=== PATIENT | female | born 1980 | race Caucasian/White ===

== ENCOUNTER → 2017-08-25 | Outpatient (CLI) | payer OTHER ==
[2017-08-25 16:11] LABS: ADD MAN DIFF? NO
[2017-08-25 16:17] LABS: BILIRUBIN,URINE NEGATIVE (NEG); CLARITY,URINE CLEAR; COLOR,URINE YELLOW; GLUCOSE,URINE NEGATIVE (NEG); NITRITE,URINE NEGATIVE (NEG); PROTEIN,URINE NEGATIVE (NEG-TRACE)
[2017-08-25 16:18] LABS: BASO # 0.1 x10^3/uL (0.0-0.2); BASO % 1 % (0-3); EOS # 0.3 x10^3/uL (0.0-0.7); EOS % 4 % (0-3); HEMATOCRIT 38.7 % (36.0-47.0); HEMOGLOBIN 12.9 g/dL (12.0-15.5); LYMPH # 3.4 x10^3/uL (1.0-4.8); LYMPH % 39 % (24-48); MEAN CORPUSCULAR HEMOGLOBIN 29 pg (25-35); MEAN CORPUSCULAR HGB CONC 33 g/dL (31-37); MEAN CORPUSCULAR VOLUME 88 fL (79-100); MONO # 0.6 x10^3/uL (0.0-1.1); MONO % 7 % (0-9); NEUT # 4.3 x10^3uL (1.8-7.7); NEUT % 49 % (31-73); PLATELET COUNT 268 x10^3/uL (140-400); RED BLOOD COUNT 4.38 x10^6/uL (3.50-5.40); RED CELL DISTRIBUTION WIDTH 15.1 % (11.5-14.5); WHITE BLOOD COUNT 8.7 x10^3/uL (4.0-11.0)
[2017-08-25 16:27] LABS: RBC,URINE 0 /HPF (0-2); WBC,URINE OCC /HPF (0-4)
[2017-08-25 16:28] LABS: BACTERIA,URINE 0 /HPF (0-FEW); SQUAMOUS EPITHELIAL CELL,UR MOD /LPF
[2017-08-25 16:39] LABS: ALBUMIN 3.6 g/dL (3.4-5.0); BLOOD UREA NITROGEN 11 mg/dL (7-20); CALCIUM 9.1 mg/dL (8.5-10.1); CREATININE 0.9 mg/dL (0.6-1.0); GLUCOSE 84 mg/dL (70-99); TOTAL PROTEIN 7.3 g/dL (6.4-8.2)
[2017-08-25 16:40] LABS: ALK PHOS 79 U/L (46-116); ALT (SGPT) 24 U/L (14-59); ANION GAP 10 (6-14); AST (SGOT) 16 U/L (15-37); BUN/CREATININE RATIO 12 (6-20); CARBON DIOXIDE 24 mmol/L (21-32); CHLORIDE 106 mmol/L (98-107); GFR 70.5; SODIUM 140 mmol/L (136-145); TOTAL BILIRUBIN 0.2 mg/dL (0.2-1.0)
== END | disposition home or self-care (01) ==
LOC: SURGPAT 15:26
DX: Z01.818 Encounter for other preprocedural examination (principal)
CPT/HCPCS: 36415; 80053; 81001; 85025

== ENCOUNTER 2017-09-01 06:22 | Observation (INO) | payer OTHER ==
[2017-09-01] MEDS ORDERED: fentaNYL PF VIAL 100 MCG/2 ML VIAL ×4 (06:27→11:45)
[2017-09-01] MEDS ORDERED: PROPOFOL 20 ML IV ×2 (06:27→09:10)
[2017-09-01] MEDS ORDERED: DEXAMETHASONE SOD PHOS 20 MG/5 ML VIAL. (06:27)
[2017-09-01] MEDS ORDERED: ONDANSETRON PF 4 MG/2 ML VIAL. (06:27)
[2017-09-01] MEDS ORDERED: LIDOCAINE 2% PF Vial for OR 5 ML VIAL. (06:27)
[2017-09-01] MEDS ORDERED: ROCURONIUM 50 MG/5 ML VIAL. ×2 (06:27→08:26)
[2017-09-01] MEDS ORDERED: ONDANSETRON PF 4 MG/2 ML VIAL. IV ×2 (07:00→10:45)
[2017-09-01] MEDS ORDERED: LIDOCAINE 1% PF 2 ML VIAL. ID (07:00)
[2017-09-01] MEDS: IV RINGERS,LACTATED 1000ML 1,000 ML IV (07:00)
[2017-09-01] MEDS ORDERED: fentaNYL PF VIAL 100 MCG/2 ML VIAL IV (07:00)
[2017-09-01] MEDS ORDERED: MIDAZOLAM HCL/PF 2 MG/2 ML VIAL. (07:10)
[2017-09-01 08:08] LABS: NEG OBC UR NEG; POS OBC UR POS; U PREG PATIENT NEGATIVE (NEG)
[2017-09-01] MEDS ORDERED: FAMOTIDINE 20 MG/2 ML VIAL (08:14)
[2017-09-01] MEDS ORDERED: ePHEDrine PF IN SALINE 50 MG/5 ML DISP.SYRIN IV (08:31)
[2017-09-01] MEDS ORDERED: GLYCOPYRROLATE 1 MG/5 ML VIAL. (08:55)
[2017-09-01] MEDS ORDERED: NEOSTIGMINE METHYLSULFATE 5 MG/5 ML SYRINGE. (08:55)
[2017-09-01] MEDS ORDERED: KETOROLAC 30 MG/ML INJ FOR OR. INJ (08:55)
[2017-09-01] MEDS ORDERED: DESFLURANE 61 TO 120 MINUTES IH (08:56)
[2017-09-01] MEDS ORDERED: DESFLURANE > 120 MINUTES IH (10:00)
[2017-09-01] MEDS: BUPIVACAINE-EPI 0.25%-1:200000 50 ML VIAL. (10:03)
[2017-09-01] MEDS ORDERED: 0.9 % SODIUM CHLORIDE 10 ML DISP.SYRIN. IV (10:45)
[2017-09-01] MEDS ORDERED: NALOXONE 0.4 MG/ML VIAL. IV (10:45)
[2017-09-01] MEDS ORDERED: MORPHINE SULFATE 2 MG/ML DISP.SYRIN. IV (10:45)
[2017-09-01] MEDS ORDERED: SIMETHICONE 80 MG TAB.CHEW PO (10:45)
[2017-09-01] MEDS ORDERED: CALCIUM CARBONATE 500 MG TAB.CHEW PO (10:45)
[2017-09-01] MEDS ORDERED: ZOLPIDEM 5 MG TABLET. PO (10:45)
[2017-09-01] MEDS ORDERED: diphenhydrAMINE HCL 25 MG CAPSULE PO (10:45)
[2017-09-01] MEDS ORDERED: LACTULOSE 20 GM/30 ML SOLUTION. PO (10:45)
[2017-09-01] MEDS ORDERED: diphenhydrAMINE 50 MG/ML VIAL IV (10:45)
[2017-09-01] MEDS ORDERED: MAG HYDROX/ALUMINUM HYD/SIMETH 30 ML ORAL.SUSP PO (10:45)
[2017-09-01] MEDS ORDERED: MAGNESIUM HYDROXIDE 2,400 MG/30 ML ORAL.SUSP. PO (10:45)
[2017-09-01] MEDS ORDERED: PROCHLORPERAZINE 10 MG/2 ML VIAL. (11:01)
[2017-09-01] MEDS: MORPHINE SULFATE 2 MG/ML DISP.SYRIN. IV ×3 (11:31→14:41)
[2017-09-01] MEDS: fentaNYL PF VIAL 100 MCG/2 ML VIAL IV (11:49)
[2017-09-01] MEDS: PROCHLORPERAZINE 10 MG/2 ML VIAL. IV (11:53)
[2017-09-01] MEDS: oxyCODONE IR 5 MG TABLET PO (18:05)
[2017-09-01] MEDS: ZOLPIDEM 5 MG TABLET. PO (21:20)
[2017-09-01] MEDS: LORazepam 1 MG TABLET PO (21:20)
[2017-09-01] MEDS: SERTRALINE 50 MG TABLET. PO (21:20)
[2017-09-02] MEDS: oxyCODONE IR 5 MG TABLET PO ×2 (01:34→07:44)
[2017-09-02 06:50] LABS: ANION GAP 10 (6-14); BLOOD UREA NITROGEN 12 mg/dL (7-20); CALCIUM 9.3 mg/dL (8.5-10.1); CARBON DIOXIDE 24 mmol/L (21-32); CHLORIDE 106 mmol/L (98-107); CREATININE 1.1 mg/dL (0.6-1.0); GFR 55.9; GLUCOSE 207 mg/dL (70-99); POTASSIUM 4.2 mmol/L (3.5-5.1); SODIUM 140 mmol/L (136-145)
[2017-09-02 07:10] LABS: HEMATOCRIT 35.1 % (36.0-47.0)
[2017-09-02] MEDS: LORazepam 1 MG TABLET PO (07:43)
[2017-09-02] MEDS: FLUTICASONE 50MCG/NASAL SPRAY 16GM BOTTLE. NS (07:43)
[2017-09-02] MEDS: PANTOPRAZOLE 40 MG TABLET.DR. PO (07:43)
[2017-09-02] MEDS ORDERED: CETIRIZINE HCL 10 MG TABLET. PO (09:00)
[2017-09-02] MEDS: ESTRADIOL WEEKLY 0.1 MG PATCH. TD (10:45)
== END 2017-09-02 12:00 | disposition home or self-care (01) ==
LOC: SURG 06:22 → 3 NORTH 12:29
DX: D25.9 Leiomyoma of uterus, unspecified (principal); N83.202 Unspecified ovarian cyst, left side; R35.8 Other polyuria; N73.6 Female pelvic peritoneal adhesions (postinfective); N83.8 Other noninflammatory disorders of ovary, fallopian tube and broad ligament; N83.12 Corpus luteum cyst of left ovary
CPT/HCPCS: 36415; 80048; 81025; 85014; 86850; 86900; 86901; 88307; 96374; A7015; G0378; G0379; J0780; J1100; J1885; J2001; J2250; J2270; J2405; J2704; J2710; J3010; J3490; J7030; J7120; S0028

== ENCOUNTER 2021-05-23 20:47 | Inpatient (IN) | payer SELFPAY ==
[~2021-05-23] VITALS: Ht 162.6 cm; Wt 79.5 kg
[~2021-05-23 20:47] MED LIST: CALC600T60 PO; FLUT9.9S NS; LORA10TA3 PO; LORA1TAB PO; MULT-445 PO; OXYC10TA PO; PANT40GR PO; POLY17PO29 PO; PREG-9 PO; SERT100T PO; TOPI50TA8 PO; ZOLP10TA PO
[2021-05-23 22:24] LABS: BILIRUBIN,URINE NEGATIVE (NEG); CLARITY,URINE CLEAR; COLOR,URINE YELLOW; NITRITE,URINE POSITIVE (NEG); PROTEIN,URINE TRACE mg/dL (NEG-TRACE); UROBILINOGEN,URINE 0.2 mg/dL (0.2 mg/dL)
[2021-05-23 22:25] LABS: BACTERIA,URINE MODERATE /HPF (0-FEW); RBC,URINE OCC /HPF (0-2); WBC,URINE >40 /HPF (0-4)
[2021-05-23] MEDS ORDERED: ONDANSETRON PF 4 MG/2 ML VIAL. IVP ONE (22:30)
[2021-05-23] MEDS ORDERED: fentaNYL PF VIAL 100 MCG/2 ML VIAL IVP ONE (22:30)
[2021-05-23 22:33] LABS: BASO # 0.1 x10^3/uL (0.0-0.2); BASO % 1 % (0-3); EOS # 0.1 x10^3/uL (0.0-0.7); EOS % 1 % (0-3); HEMATOCRIT 35.1 % (36.0-47.0); HEMOGLOBIN 11.3 g/dL (12.0-15.5); LYMPH # 2.6 x10^3/uL (1.0-4.8); LYMPH % 23 % (24-48); MEAN CORPUSCULAR HEMOGLOBIN 29 pg (25-35); MEAN CORPUSCULAR HGB CONC 32 g/dL (31-37); MEAN CORPUSCULAR VOLUME 88 fL (79-100); MONO # 1.2 x10^3/uL (0.0-1.1); MONO % 10 % (0-9); NEUT # 7.5 x10^3/uL (1.8-7.7); NEUT % 65 % (31-73); PLATELET COUNT 286 x10^3/uL (140-400); RED BLOOD COUNT 3.97 x10^6/uL (3.50-5.40); RED CELL DISTRIBUTION WIDTH 14.1 % (11.5-14.5); WHITE BLOOD COUNT 11.5 x10^3/uL (4.0-11.0)
--- NOTE | 2021-05-23 22:40 | ED.ADGEN ---
Past Medical History Past Surgical History: Cholecystectomy, , Gastric Bypass, Hysterectomy, Tonsillectomy Smoking Status: Current Every Day Smoker Alcohol Use: None General Adult EDM: Chief Complaint: MULTIPLE COMPLAINTS HPI: HPI: Patient is a 40 year old female presenting with bilateral flank pain, worse on left, chills, nausea and vomiting (that is worse than baseline since she had her gastric bypass), dysuria and hematuria. Patient states she has a history of sepsis secondary to pyelonephritis about 7-1/2 years ago, was hospitalized at in the ICU at that time. Patient has been taking Tylenol for the past 2 days. Patient states she initially had some loose stools but denies any diarrhea currently. Has not taken her temperature at home. Review of Systems: Review of Systems: All other systems within normal limits except for as noted in the HPI Current Medications: Current Medications Medications (Trade) Dose Ordered Sig/Misael Start Time Stop Time Status Last Admin Dose Admin Ceftriaxone Sodium (Rocephin) 1 gm 1X ONCE 05/24/21 00:30 05/24/21 00:31 DC 05/24/21 00:55 1 GM Fentanyl Citrate (Fentanyl 2ml Vial) 75 mcg 1X ONCE 05/23/21 22:30 05/23/21 22:31 DC 05/23/21 22:27 75 MCG Info (CONTRAST GIVEN -- Rx MONITORING) 1 each PRN DAILY PRN 05/23/21 23:45 05/25/21 23:44 Iohexol (Omnipaque 300 Mg/ml) 75 ml 1X ONCE 05/24/21 00:00 05/24/21 00:01 DC 05/23/21 23:52 75 ML Ondansetron HCl (Zofran) 4 mg 1X ONCE 05/23/21 22:30 05/23/21 22:31 DC 05/23/21 22:26 4 MG Allergies: Allergies: Allergies Coded Allergies Type Severity Reaction Last Updated Verified hydrocodone Allergy Intermediate UNSPECIFIED; TOLERATES OXYCODONE 09/01/17 No propoxyphene Allergy Intermediate 09/01/17 No Physical Exam: PE: Constitutional: Well developed, well nourished, no acute distress, non-toxic appearance. [] HENT: Normocephalic, atraumatic, bilateral external ears normal, nose normal. [] Eyes: PERRLA, conjunctiva normal, no discharge. [] Neck: No rigidity, supple, no stridor. [] Cardiovascular: Regular rate and rhythm, brisk cap refill [] Lungs & Thorax: Non labored symmetric respirations, no tachypnea or respiratory distress [] Abdomen: Soft, nondistended, left abdominal tenderness without Skin: Warm, dry, no erythema, no rash. [] Back: Unremarkable, no point spine tenderness, bilateral CVA tenderness worse on left. Extremities: No deformities, range of motion grossly intact, no lower extremity edema [] Neurologic: Alert and oriented X 3, no focal deficits noted. [] Psychologic: Affect normal, judgement normal, mood normal. [] Current Patient Data: Labs: Laboratory Tests Test 05/23/21 21:30 05/23/21 21:34 05/23/21 22:15 Urine Collection Type Unknown Urine Color Yellow Urine Clarity Clear Urine pH 6.0 (<5.0-8.0) Urine Specific [place] <=1.005 (1.000-1.030) Urine Protein Trace mg/dL (NEG-TRACE) Urine Glucose (UA) Negative mg/dL (NEG) Urine Ketones (Stick) Negative mg/dL (NEG) Urine Blood Trace (NEG) Urine Nitrite Positive (NEG) Urine Bilirubin Negative (NEG) Urine Urobilinogen Dipstick 0.2 mg/dL (0.2 mg/dL) Urine Leukocyte Esterase Small (NEG) Urine RBC Occ /HPF (0-2) Urine WBC >40 /HPF (0-4) Urine Squamous Epithelial Cells Mod /LPF Urine Bacteria Moderate /HPF (0-FEW) Urine Mucus Slight /LPF POC Urine HCG, Qualitative Hcg negative (Negative) White Blood Count 11.5 x10^3/uL (4.0-11.0) H Red Blood Count 3.97 x10^6/uL (3.50-5.40) Hemoglobin 11.3 g/dL (12.0-15.5) L Hematocrit 35.1 % (36.0-47.0) L Mean Corpuscular Volume 88 fL (79-100) Mean Corpuscular Hemoglobin 29 pg (25-35) Mean Corpuscular Hemoglobin Concent 32 g/dL (31-37) Red Cell Distribution Width 14.1 % (11.5-14.5) Platelet Count 286 x10^3/uL (140-400) Neutrophils (%) (Auto) 65 % (31-73) Lymphocytes (%) (Auto) 23 % (24-48) L Monocytes (%) (Auto) 10 % (0-9) H Eosinophils (%) (Auto) 1 % (0-3) Basophils (%) (Auto) 1 % (0-3) Neutrophils # (Auto) 7.5 x10^3/uL (1.8-7.7) Lymphocytes # (Auto) 2.6 x10^3/uL (1.0-4.8) Monocytes # (Auto) 1.2 x10^3/uL (0.0-1.1) H Eosinophils # (Auto) 0.1 x10^3/uL (0.0-0.7) Basophils # (Auto) 0.1 x10^3/uL (0.0-0.2) Prothrombin Time 14.0 SEC (11.7-14.0) Prothrombin Time INR 1.1 (0.8-1.1) Sodium Level 140 mmol/L (136-145) Potassium Level 4.0 mmol/L (3.5-5.1) Chloride Level 103 mmol/L (98-107) Carbon Dioxide Level 29 mmol/L (21-32) Anion Gap 8 (6-14) Blood Urea Nitrogen 10 mg/dL (7-20) Creatinine 0.9 mg/dL (0.6-1.0) Estimated GFR (Cockcroft-Gault) 69.0 BUN/Creatinine Ratio 11 (6-20) Glucose Level 94 mg/dL (70-99) Lactic Acid Level 1.1 mmol/L (0.4-2.0) Calcium Level 9.0 mg/dL (8.5-10.1) Total Bilirubin 0.7 mg/dL (0.2-1.0) Aspartate Amino Transferase (AST) 9 U/L (15-37) L Alanine Aminotransferase (ALT) 19 U/L (14-59) Alkaline Phosphatase 96 U/L (46-116) Total Protein 7.9 g/dL (6.4-8.2) Albumin 3.4 g/dL (3.4-5.0) Albumin/Globulin Ratio 0.8 (1.0-1.7) L Lipase 103 U/L (73-393) Salicylates Level 2.5 mg/dL (2.8-20.0) L Salicylate Last Dose Date Salicylate Last Dose Time Acetaminophen Level 11.7 mcg/ml (10-30) Acetaminophen Last Dose Date Acetaminophen Last Dose Time Laboratory Tests 05/23/21 22:15 Laboratory Tests 05/23/21 22:15 Vital Signs: Vital Signs Date Time Temp Pulse Resp B/P (MAP) Pulse Ox O2 Delivery O2 Flow Rate FiO2 05/23/21 22:27 18 100 Room Air 05/23/21 21:28 98.4 81 113/73 (86) 98.4 EKG: EKG: [] Heart Score: C/O Chest Pain: No Risk Factors: Risk Factors: DM, Current or recent (<one month) smoker, HTN, HLP, family history of CAD, obesity. Risk Scores: Score 0 - 3: 2.5% MACE over next 6 weeks - Discharge Home Score 4 - 6: 20.3% MACE over next 6 weeks - Admit for Clinical Observation Score 7 - 10: 72.7% MACE over next 6 weeks - Early Invasive Strategies Radiology/Procedures: Radiology/Procedures: [facility] [address] [place] [address] IMAGING REPORT Signed PATIENT: MAKENNA MALLOY ACCOUNT: [id number] : 1980 LOCATION: ER AGE: 40 SEX: F EXAM STATUS: REG ER ORD. PHYSICIAN: CHAYA CHOI MD REASON: pyelonephritis, OMNI 300 75 ML IV PROCEDURE: CT ABD PELV W/ IV CONTRST ONLY EXAMINATION: CT abdomen and pelvis with IV contrast. INDICATION:40 years, Female, polynephritis. TECHNIQUE: Axial CT images of the abdomen and pelvis were obtained. Coronal and sagittal reformatted performed. COMPARISON: 03/01/2010. Exposure: One or more of the following individualized dose reduction techniques were utilized for this examination: 1. Automated exposure control 2. Adjustment of the mA and/or kV according to patient size 3. Use of iterative reconstruction technique. FINDINGS: LOWER CHEST: Unremarkable. ABDOMEN/PELVIS: Mild heterogeneous enhancement of the kidneys with mild bilateral perinephric fat stranding, greater in the left. Thickened left renal pelvis urothelia with enhancement. Punctate (1 mm) nonobstructing right nephrolithiasis. No hydronephrosis. Decompressed urinary bladder which limits evaluation. Liver, spleen, pancreas and adrenal glands are unremarkable. Cholecystectomy. Prominent central intrahepatic and extrahepatic biliary ducts with smooth tapering distally, likely secondary to postcholecystectomy status. Post Musa-en-Y gastric bypass changes. No bowel dilation. Appendix is normal. Normal caliber abdominal aorta. Mesenteric arteries and portal veins are patent. No lymphadenopathy. No pneumoperitoneum or ascites. Hysterectomy. MUSCULOSKELETAL STRUCTURES: Bilateral L5 pars defect with grade 1 anterolisthesis of L5 over S1 and severe degenerative changes. No acute osseous process. Small fat-containing infraumbilical hernia. Postsurgical changes along the anterior abdominal wall. IMPRESSION: 1. Findings suggesting of mild uncomplicated acute bilateral pyelonephritis, greater in the left kidney. 2. Punctate nonobstructing right nephrolithiasis. No hydronephrosis in either kidney. Electronically signed by: Zaida Ribera MD (05/24/2021 12:31 AM) [facility] DICTATED and SIGNED BY: ZAIDA RIBERA MD DATE: 05/24/21 [id number] [] Course & Med Decision Making: Course & Med Decision Making Pertinent Labs and Imaging studies reviewed. (See chart for details) [] Kvng Disclaimer: Kvng Disclaimer: This electronic medical record was generated, in whole or in part, using a voice recognition dictation system. Departure Departure Impression: Primary Impression: Pyelonephritis Additional Impression: Nephrolithiasis Disposition: ADMITTED INPATIENT Admitting Physician: HIMS Condition: STABLE Referrals: EBONY GUIDRY MD (PCP) Problem Qualifiers CHAYA CHOI MD May 23, 2021 22:40
[2021-05-23 22:42] LABS: CREATININE 0.9 mg/dL (0.6-1.0)
[2021-05-23 22:48] LABS: ALBUMIN 3.4 g/dL (3.4-5.0); ALBUMIN/GLOBULIN RATIO 0.8 (1.0-1.7); TOTAL BILIRUBIN 0.7 mg/dL (0.2-1.0); TOTAL PROTEIN 7.9 g/dL (6.4-8.2)
[2021-05-23 22:51] LABS: ACETAMIN 11.7 mcg/ml (10-30); SALIC 2.5 mg/dL (2.8-20.0)
[2021-05-23] MEDS ORDERED: CONTRAST GIVEN. MC PRN (23:45)
[2021-05-24] MEDS ORDERED: IOHEXOL 300 MG/ML 100ML VIAL. IV ONE
[2021-05-24] MEDS ORDERED: cefTRIAXone IV Push 1 GM VIAL. IVP ONE (00:30)
--- NOTE | 2021-05-24 00:34 | RAD ---
EXAMINATION: CT abdomen and pelvis with IV contrast. INDICATION:40 years, Female, polynephritis. TECHNIQUE: Axial CT images of the abdomen and pelvis were obtained. Coronal and sagittal reformatted performed. COMPARISON: 03/01/2010. Exposure: One or more of the following individualized dose reduction techniques were utilized for thi s examination: 1. Automated exposure control 2. Adjustment of the mA and/or kV according to patient size 3. Use of iterative reconstruction technique. FINDINGS: LOWER CHEST: Unremarkable. ABDOMEN/PELVIS: Mild heterogeneous enhancement of the kidneys with mild bilateral perinephric fat stranding, greater in the left. Thickened left renal pelvis urothelia with enhancement. Punctate (1 mm) nonobstructing r ight nephrolithiasis. No hydronephrosis. Decompressed urinary bladder which limits evaluation. Liver, spleen, pancreas and adrenal glands are unremarkable. Cholecystectomy. Prominent central intra hepatic and extrahepatic biliary ducts with smooth tapering distally, likely secondary to postcholecy stectomy status. Post Musa-en-Y gastric bypass changes. No bowel dilation. Appendix is normal. Normal caliber abdomina l aorta. Mesenteric arteries and portal veins are patent. No lymphadenopathy. No pneumoperitoneum or ascites. Hysterectomy. MUSCULOSKELETAL STRUCTURES: Bilateral L5 pars defect with grade 1 anterolisthesis of L5 over S1 and severe degenerative changes. No acute osseous process. Small fat-containing infraumbilical hernia. Postsurgical changes along the anterior abdominal wall. IMPRESSION: 1. Findings suggesting of mild uncomplicated acute bilateral pyelonephritis, greater in the left kid yasir. 2. Punctate nonobstructing right nephrolithiasis. No hydronephrosis in either kidney. Electronically signed by: Everett Ribera MD (05/24/2021 12:31 AM) [facility]
[2021-05-24] MEDS ORDERED: ACETAMINOPHEN 325 MG TABLET. PO PRN ×2 (01:00→10:00)
[2021-05-24] MEDS ORDERED: MORPHINE SULFATE 4 MG/ML INJ. IV ONE (01:00)
[2021-05-24] MEDS: ONDANSETRON PF 4 MG/2 ML VIAL. IVP PRN ×2 (01:21→10:07)
[2021-05-24] MEDS: IV NORMAL SALINE 1000ML BAG 1,000 ML IV SCH ×2 (01:22→14:20)
[2021-05-24 01:49] LABS: INFLUENZA A PATIENT NEGATIVE (NEGATIVE); INFLUENZA B PATIENT NEGATIVE (NEGATIVE)
[2021-05-24] MEDS: MORPHINE SULFATE 4 MG/ML INJ. IVP PRN ×6 (03:15→16:41)
--- NOTE | 2021-05-24 04:25 | NUR ---
Admitted to room 434. POC discussed with patient and verbalized understanding.
[2021-05-24 07:00] VITALS: BP 101/49
[2021-05-24] MEDS ORDERED: PIP/TAZO PER PHARMACY MC PRN (09:45)
[2021-05-24] MEDS ORDERED: ELECTROLYTE (NON-ICU) PROTOCOL. MC PRN (10:00)
[2021-05-24] MEDS ORDERED: ONDANSETRON PF 4 MG/2 ML VIAL. IVP PRN (10:00)
[2021-05-24] MEDS ORDERED: CALCIUM CARBONATE 500 MG TAB.CHEW PO PRN (10:00)
[2021-05-24] MEDS ORDERED: oxyCODONE/APAP 5/325 1 TAB TABLET PO PRN ×2 (10:00)
[2021-05-24] MEDS ORDERED: ZOLPIDEM 5 MG TABLET. PO PRN (10:00)
[2021-05-24] MEDS ORDERED: oxyCODONE IR 5 MG TABLET PO PRN (10:30)
[2021-05-24] MEDS: oxyCODONE IR 5 MG TABLET PO PRN ×3 (10:37→21:49)
[2021-05-24 10:51] VITALS: BP 92/53
--- NOTE | 2021-05-24 10:51 | PDOC2 ---
UROLOGY CONSULT DOS: DATE: 05/24/21 TIME: 10:39 Reason for Consult: bilateral pyelonephritis Chief Complaint flank pain 40 year old female presented overnight to the ER with bilateral flank pain, fevers, chills, nausea x1 day. Does endorse dysuria, frequency that lasted "a few days". Patient with significant urological history including pyelonephritis 7 years ago which caused her to be septic. She states that at that time she also had kidney stones. States the stones passed on their own, did not require surgery or any invasive procedures that admission. Does endorse have stones in the past not requiring intervention. States she is feeling much better compared to admission. CT A/P done in ER showing bilateral pyelo, does have 1mm nonobstructing right nephrolithiasis. No hydronephrosis. ROS ROS: RESPIRATORY: Shortness of breath denies. Cough denies. UROLOGY: endorses bilateral flank pain, dysuria, frequency Current Medications Current Medications Fentanyl Citrate (Fentanyl 2ml Vial) 75 mcg 1X ONCE IVP Last administered on 05/23/21at 22:27; Start 05/23/21 at 22:30; Stop 05/23/21 at 22:31; Status DC Ondansetron HCl (Zofran) 4 mg 1X ONCE IVP Last administered on 05/23/21at 22:26; Start 05/23/21 at 22:30; Stop 05/23/21 at 22:31; Status DC Iohexol (Omnipaque 300 Mg/ml) 75 ml 1X ONCE IV Last administered on 05/23/21at 23:52; Start 05/24/21 at 00:00; Stop 05/24/21 at 00:01; Status DC Info (CONTRAST GIVEN -- Rx MONITORING) 1 each PRN DAILY PRN MC SEE COMMENTS; Start 05/23/21 at 23:45; Stop 05/25/21 at 23:44 Ceftriaxone Sodium (Rocephin) 1 gm 1X ONCE IVP Last administered on 05/24/21at 00:55; Start 05/24/21 at 00:30; Stop 05/24/21 at 00:31; Status DC Morphine Sulfate (Morphine Sulfate) 4 mg 1X ONCE IV Last administered on 05/24/21at 00:53; Start 05/24/21 at 01:00; Stop 05/24/21 at 01:01; Status DC Ondansetron HCl (Zofran) 4 mg PRN Q8HRS PRN IVP NAUSEA/VOMITING 1ST CHOICE Last administered on 05/24/21at 10:07; Start 05/24/21 at 01:00; Stop 05/25/21 at 00:59 Morphine Sulfate (Morphine Sulfate) 4 mg PRN Q2HR PRN IVP SEVERE PAIN 7-10 Last administered on 05/24/21at 10:07; Start 05/24/21 at 01:00; Stop 05/25/21 at 00:59 Sodium Chloride 1,000 ml @ 75 mls/hr [id number] IV Last administered on 05/24/21at 01:22; Start 05/24/21 at 01:00; Stop 05/25/21 at 00:59 Acetaminophen (Tylenol) 650 mg PRN Q4HRS PRN PO FEVER > 100.3'F Last administered on 05/24/21at 07:22; Start 05/24/21 at 01:00; Stop 05/24/21 at 10:00; Status DC Piperacillin Sod/ Tazobactam Sod (Zosyn Per Pharmacy) 1 each PRN DAILY PRN MC SEE COMMENTS; Start 05/24/21 at 09:45 Polyethylene Glycol (miraLAX PACKET) 17 gm DAILY PO ; Start 05/24/21 at 11:00 Fluticasone Propionate (Flonase) 2 spray DAILY NS ; Start 05/25/21 at 09:00 Cetirizine HCl (ZyrTEC) 10 mg DAILY PO ; Start 05/24/21 at 11:00 Multivitamins (Thera M Plus) 1 tab DAILY PO ; Start 05/24/21 at 11:00 Non-Formulary Medication (Oxycodone Hcl (Oxycodone Hcl Immed.release)) 1 tab TID PO ; Start 05/24/21 at 14:00; Status UNV Pantoprazole Sodium (Protonix) 40 mg DAILYAC PO ; Start 05/24/21 at 11:30 Zolpidem Tartrate (Ambien) 5 mg QHS PO ; Start 05/24/21 at 21:00 Ondansetron HCl (Zofran) 4 mg PRN Q6HRS PRN IVP NAUSEA/VOMITING; Start 05/24/21 at 10:00 Calcium Carbonate/ Glycine (Tums) 500 mg PRN Q3HRS PRN PO UPSET STOMACH; Start 05/24/21 at 10:00 Zolpidem Tartrate (Ambien) 5 mg PRN QHS PRN PO INSOMNIA, MAY REPEAT IN 1HR; Start 05/24/21 at 10:00; Status UNV Info (Non-Icu Electrolyte Protocol) 1 ea PRN DAILY PRN MC SEE COMMENTS; Start 05/24/21 at 10:00 Oxycodone/ Acetaminophen (Percocet 5/325) 1 tab PRN Q4HRS PRN PO MILD PAIN, 1ST CHOICE; Start 05/24/21 at 10:00; Stop 05/24/21 at 10:25; Status DC Oxycodone/ Acetaminophen (Percocet 5/325) 2 tab PRN Q4HRS PRN PO MODERATE PAIN, SEVERE PAIN; Start 05/24/21 at 10:00; Stop 05/24/21 at 10:25; Status DC Acetaminophen (Tylenol) 650 mg PRN Q6HRS PRN PO Headaches, Temp > 101.5F; Start 05/24/21 at 10:00 Senna/Docusate Sodium (Senna Plus) 1 tab BID PO ; Start 05/24/21 at 21:00 Heparin Sodium (Porcine) (Heparin Sodium) 5,000 unit Q8HRS SQ ; Start 05/24/21 at 14:00 Piperacillin Sod/ Tazobactam Sod 3.375 gm/Sodium Chloride 50 ml @ 100 mls/hr Q6HRS IV ; Start 05/24/21 at 12:00 Oxycodone HCl (Roxicodone) 5 mg PRN Q4HRS PRN PO MODERATE PAIN; Start 05/24/21 at 10:30 Oxycodone HCl (Roxicodone) 10 mg PRN Q4HRS PRN PO SEVERE PAIN Last administered on 05/24/21at 10:37; Start 05/24/21 at 10:45 Active Scripts Active Reported Multivitamins (Multivitamin) 1 Each Tablet 1 Tab PO DAILY Miralax (Polyethylene Glycol 3350) 17 Gm Powd.pack 1 Packet PO DAILY Calcium (Calcium Carbonate) 600 Mg Tablet 600 Mg PO TID Flonase Allergy Relief (Fluticasone Propionate) 9.9 Ml [place].susp 2 Sprays NS DAILY Loratadine 10 Mg Tablet 1 Tab PO DAILY Ambien (Zolpidem Tartrate) 10 Mg Tablet 1 Tab PO QHS Oxycodone Hcl Immed.release (Oxycodone Hcl) 10 Mg Tablet 1 Tab PO TID Protonix Packet (Pantoprazole Sodium) 40 Mg Granpkt.dr 40 Mg PO DAILY Allergies: Coded Allergies: Opioids - Morphine Analogues (Verified Allergy, Intermediate, 05/24/21) COMPOUNDED Opioids-Meperidine and Related (Verified Allergy, Intermediate, 05/24/21) COMPOUNDED Opioids-Methadone and Related (Verified Allergy, Intermediate, 05/24/21) COMPOUNDED hydrocodone (Unverified Allergy, Intermediate, UNSPECIFIED; TOLERATES OXYCODONE, 09/01/17) propoxyphene (Unverified Allergy, Intermediate, 09/01/17) Physical Examination PHYSICAL EXAMINATION: GENERAL: Gen. appearance: No acute distress. Mood/affect: Pleasant. HEENT: Head: Normocephalic, atraumatic. Airway Impairment: No. CHEST: Shape and expansion: Normal. Expansion: Normal. SKIN: General: Warm. Color: Good. GENITOURINARY:Positive bilat CVA tenderness. Left >right. Urine in hat clear orange. NEUROLOGICAL: Mental status: Alert and oriented 3. Language: Normal. VITALS Vital Signs Date Time Temp Pulse Resp B/P (MAP) Pulse Ox O2 Delivery O2 Flow Rate FiO2 05/24/21 10:37 16 96 Room Air 05/24/21 07:00 100.3 101/49 (66) 100.3 05/24/21 02:35 58 Labs Laboratory Tests Test 05/23/21 21:30 05/23/21 21:34 05/23/21 22:15 05/24/21 01:25 Urine Collection Type Unknown Urine Color Yellow Urine Clarity Clear Urine pH 6.0 (<5.0-8.0) Urine Specific [place] <=1.005 (1.000-1.030) Urine Protein Trace mg/dL (NEG-TRACE) Urine Glucose (UA) Negative mg/dL (NEG) Urine Ketones (Stick) Negative mg/dL (NEG) Urine Blood Trace (NEG) Urine Nitrite Positive (NEG) Urine Bilirubin Negative (NEG) Urine Urobilinogen Dipstick 0.2 mg/dL (0.2 mg/dL) Urine Leukocyte Esterase Small (NEG) Urine RBC Occ /HPF (0-2) Urine WBC >40 /HPF (0-4) Urine Squamous Epithelial Cells Mod /LPF Urine Bacteria Moderate /HPF (0-FEW) Urine Mucus Slight /LPF Bedside Urine HCG, Qualitative Hcg negative (Negative) White Blood Count 11.5 x10^3/uL (4.0-11.0) Red Blood Count 3.97 x10^6/uL (3.50-5.40) Hemoglobin 11.3 g/dL (12.0-15.5) Hematocrit 35.1 % (36.0-47.0) Mean Corpuscular Volume 88 fL (79-100) Mean Corpuscular Hemoglobin 29 pg (25-35) Mean Corpuscular Hemoglobin Concent 32 g/dL (31-37) Red Cell Distribution Width 14.1 % (11.5-14.5) Platelet Count 286 x10^3/uL (140-400) Neutrophils (%) (Auto) 65 % (31-73) Lymphocytes (%) (Auto) 23 % (24-48) Monocytes (%) (Auto) 10 % (0-9) Eosinophils (%) (Auto) 1 % (0-3) Basophils (%) (Auto) 1 % (0-3) Neutrophils # (Auto) 7.5 x10^3/uL (1.8-7.7) Lymphocytes # (Auto) 2.6 x10^3/uL (1.0-4.8) Monocytes # (Auto) 1.2 x10^3/uL (0.0-1.1) Eosinophils # (Auto) 0.1 x10^3/uL (0.0-0.7) Basophils # (Auto) 0.1 x10^3/uL (0.0-0.2) Prothrombin Time 14.0 SEC (11.7-14.0) Prothromb Time International Ratio 1.1 (0.8-1.1) Sodium Level 140 mmol/L (136-145) Potassium Level 4.0 mmol/L (3.5-5.1) Chloride Level 103 mmol/L (98-107) Carbon Dioxide Level 29 mmol/L (21-32) Anion Gap 8 (6-14) Blood Urea Nitrogen 10 mg/dL (7-20) Creatinine 0.9 mg/dL (0.6-1.0) Estimated GFR (Cockcroft-Gault) 69.0 BUN/Creatinine Ratio 11 (6-20) Glucose Level 94 mg/dL (70-99) Lactic Acid Level 1.1 mmol/L (0.4-2.0) Calcium Level 9.0 mg/dL (8.5-10.1) Total Bilirubin 0.7 mg/dL (0.2-1.0) Aspartate Amino Transf (AST/SGOT) 9 U/L (15-37) Alanine Aminotransferase (ALT/SGPT) 19 U/L (14-59) Alkaline Phosphatase 96 U/L (46-116) Total Protein 7.9 g/dL (6.4-8.2) Albumin 3.4 g/dL (3.4-5.0) Albumin/Globulin Ratio 0.8 (1.0-1.7) Lipase 103 U/L (73-393) Salicylates Level 2.5 mg/dL (2.8-20.0) Salicylate Last Dose Date Salicylate Last Dose Time Acetaminophen Level 11.7 mcg/ml (10-30) Acetaminophen Last Dose Date Acetaminophen Last Dose Time Influenza Type A Antigen Negative (NEGATIVE) Influenza Type B Antigen Negative (NEGATIVE) SARS-CoV-2 Antigen (Rapid) Negative (NEGATIVE) Laboratory Tests Test 05/23/21 21:30 05/23/21 21:34 05/23/21 22:15 05/24/21 01:25 Urine Collection Type Unknown Urine Color Yellow Urine Clarity Clear Urine pH 6.0 (<5.0-8.0) Urine Specific [place] <=1.005 (1.000-1.030) Urine Protein Trace mg/dL (NEG-TRACE) Urine Glucose (UA) Negative mg/dL (NEG) Urine Ketones (Stick) Negative mg/dL (NEG) Urine Blood Trace (NEG) Urine Nitrite Positive (NEG) Urine Bilirubin Negative (NEG) Urine Urobilinogen Dipstick 0.2 mg/dL (0.2 mg/dL) Urine Leukocyte Esterase Small (NEG) Urine RBC Occ /HPF (0-2) Urine WBC >40 /HPF (0-4) Urine Squamous Epithelial Cells Mod /LPF Urine Bacteria Moderate /HPF (0-FEW) Urine Mucus Slight /LPF Bedside Urine HCG, Qualitative Hcg negative (Negative) White Blood Count 11.5 x10^3/uL (4.0-11.0) Red Blood Count 3.97 x10^6/uL (3.50-5.40) Hemoglobin 11.3 g/dL (12.0-15.5) Hematocrit 35.1 % (36.0-47.0) Mean Corpuscular Volume 88 fL (79-100) Mean Corpuscular Hemoglobin 29 pg (25-35) Mean Corpuscular Hemoglobin Concent 32 g/dL (31-37) Red Cell Distribution Width 14.1 % (11.5-14.5) Platelet Count 286 x10^3/uL (140-400) Neutrophils (%) (Auto) 65 % (31-73) Lymphocytes (%) (Auto) 23 % (24-48) Monocytes (%) (Auto) 10 % (0-9) Eosinophils (%) (Auto) 1 % (0-3) Basophils (%) (Auto) 1 % (0-3) Neutrophils # (Auto) 7.5 x10^3/uL (1.8-7.7) Lymphocytes # (Auto) 2.6 x10^3/uL (1.0-4.8) Monocytes # (Auto) 1.2 x10^3/uL (0.0-1.1) Eosinophils # (Auto) 0.1 x10^3/uL (0.0-0.7) Basophils # (Auto) 0.1 x10^3/uL (0.0-0.2) Prothrombin Time 14.0 SEC (11.7-14.0) Prothromb Time International Ratio 1.1 (0.8-1.1) Sodium Level 140 mmol/L (136-145) Potassium Level 4.0 mmol/L (3.5-5.1) Chloride Level 103 mmol/L (98-107) Carbon Dioxide Level 29 mmol/L (21-32) Anion Gap 8 (6-14) Blood Urea Nitrogen 10 mg/dL (7-20) Creatinine 0.9 mg/dL (0.6-1.0) Estimated GFR (Cockcroft-Gault) 69.0 BUN/Creatinine Ratio 11 (6-20) Glucose Level 94 mg/dL (70-99) Lactic Acid Level 1.1 mmol/L (0.4-2.0) Calcium Level 9.0 mg/dL (8.5-10.1) Total Bilirubin 0.7 mg/dL (0.2-1.0) Aspartate Amino Transf (AST/SGOT) 9 U/L (15-37) Alanine Aminotransferase (ALT/SGPT) 19 U/L (14-59) Alkaline Phosphatase 96 U/L (46-116) Total Protein 7.9 g/dL (6.4-8.2) Albumin 3.4 g/dL (3.4-5.0) Albumin/Globulin Ratio 0.8 (1.0-1.7) Lipase 103 U/L (73-393) Salicylates Level 2.5 mg/dL (2.8-20.0) Salicylate Last Dose Date Salicylate Last Dose Time Acetaminophen Level 11.7 mcg/ml (10-30) Acetaminophen Last Dose Date Acetaminophen Last Dose Time Influenza Type A Antigen Negative (NEGATIVE) Influenza Type B Antigen Negative (NEGATIVE) SARS-CoV-2 Antigen (Rapid) Negative (NEGATIVE) Assessment/Plan ----Bilateral pyelonephritis On rocephin currently. UA positive. Discussed with nursing that culture needs to be done off of original specimen. Recommend 14 day course of culture specific antibiotics. WBC 11 on admission. Febrile. Creat stable at 0.9. PVR done: 49. No concern with retention. No intervention needed at this time. ---1mm right nephrolithiasis Significant history of stones. Nonobstructing stone in kidney. CT with no hydro. Discussed with patient need for followup to evaluate why she is making so many stones. Patient does not have insurance. States that she most likely will not follow up. Urology will follow. D/w Dr. Castillo. SUMAN MEI APRN May 24, 2021 10:50
[2021-05-24] MEDS: POLYETHYLENE GLYCOL 3350 17 GM PACKET. PO SCH (12:02)
[2021-05-24] MEDS: MULTIVITAMIN with MINERAL TABLET. PO SCH (12:02)
[2021-05-24] MEDS: PANTOPRAZOLE 40 MG TABLET.DR. PO SCH (12:02)
[2021-05-24] MEDS: PIPERACILLIN/TAZOBACTAM 3.375 GM in IV NORMAL SALINE 50ML 50 ML IV SCH ×2 (12:03→17:16)
[2021-05-24] MEDS: CETIRIZINE HCL 10 MG TABLET. PO SCH (12:05)
[2021-05-24] MEDS ORDERED: NON FORMULARY ITEM (Oxycodone Hcl (Oxycodone Hcl Immed.release) 1 TAB) PO SCH (14:00)
[2021-05-24] MEDS: HEPARIN for SUB-Q USE 5,000 UNIT/ML VIAL. SQ SCH ×2 (14:00→22:00)
[2021-05-24 15:08] VITALS: BP 91/59
--- NOTE | 2021-05-24 17:43 | NUR ---
Patient feels urine is becoming more dark and requested doctor be notified. Shelly Nurse Practioner for notified that urine is tea/sixto color as it was this morning during her visit Will continue with NS @ 75 ml/hr
[2021-05-24 19:00] VITALS: BP 101/53
[2021-05-24] MEDS ORDERED: ZOLPIDEM 5 MG TABLET. PO SCH (21:00)
--- NOTE | 2021-05-24 21:02 | PDOC1 ---
History and Physical Date of Service: DOS: DATE: 05/24/21 TIME: 21:02 Chief Complaint: Chief Complain: flank pain, dysuria History of Present Illness: HPI: Patient is a 40 year old female presenting with bilateral flank pain, worse on left, chills, nausea and vomiting (that is worse than baseline since she had her gastric bypass), dysuria and hematuria. Patient states she has a history of sepsis secondary to pyelonephritis about 7-1/2 years ago, was hospitalized at in the ICU at that time. Patient has been taking Tylenol for the past 2 days. Patient states she initially had some loose stools but denies any diarrhea currently. Denies fevers, systemic symptoms. Past Medical/Surgical History: PMH/PSH: Past Surgical History: Cholecystectomy, , Gastric Bypass, Hysterectomy, Tonsillectomy Smoking Status: Current Every Day Smoker Alcohol Use: None, denies drug ise Allergies: Allergies: Coded Allergies: Opioids - Morphine Analogues (Verified Allergy, Intermediate, 05/24/21) COMPOUNDED Opioids-Meperidine and Related (Verified Allergy, Intermediate, 05/24/21) COMPOUNDED Opioids-Methadone and Related (Verified Allergy, Intermediate, 05/24/21) COMPOUNDED hydrocodone (Unverified Allergy, Intermediate, UNSPECIFIED; TOLERATES OXYCODONE, 09/01/17) propoxyphene (Unverified Allergy, Intermediate, 09/01/17) Family History: Family History: HTN Current Medications: Current Medications Current Medications Fentanyl Citrate (Fentanyl 2ml Vial) 75 mcg 1X ONCE IVP Last administered on 05/23/21at 22:27; Start 05/23/21 at 22:30; Stop 05/23/21 at 22:31; Status DC Ondansetron HCl (Zofran) 4 mg 1X ONCE IVP Last administered on 05/23/21at 22:26; Start 05/23/21 at 22:30; Stop 05/23/21 at 22:31; Status DC Iohexol (Omnipaque 300 Mg/ml) 75 ml 1X ONCE IV Last administered on 05/23/21at 23:52; Start 05/24/21 at 00:00; Stop 05/24/21 at 00:01; Status DC Info (CONTRAST GIVEN -- Rx MONITORING) 1 each PRN DAILY PRN MC SEE COMMENTS; Start 05/23/21 at 23:45; Stop 05/25/21 at 23:44 Ceftriaxone Sodium (Rocephin) 1 gm 1X ONCE IVP Last administered on 05/24/21at 00:55; Start 05/24/21 at 00:30; Stop 05/24/21 at 00:31; Status DC Morphine Sulfate (Morphine Sulfate) 4 mg 1X ONCE IV Last administered on 05/24/21at 00:53; Start 05/24/21 at 01:00; Stop 05/24/21 at 01:01; Status DC Ondansetron HCl (Zofran) 4 mg PRN Q8HRS PRN IVP NAUSEA/VOMITING 1ST CHOICE Last administered on 05/24/21at 10:07; Start 05/24/21 at 01:00; Stop 05/24/21 at 13:10; Status DC Morphine Sulfate (Morphine Sulfate) 4 mg PRN Q2HR PRN IVP SEVERE PAIN 7-10 Last administered on 05/24/21at 16:41; Start 05/24/21 at 01:00; Stop 05/25/21 at 00:59 Sodium Chloride 1,000 ml @ 75 mls/hr [id number] IV Last administered on 05/24/21at 14:20; Start 05/24/21 at 01:00; Stop 05/25/21 at 00:59 Acetaminophen (Tylenol) 650 mg PRN Q4HRS PRN PO FEVER > 100.3'F Last administered on 05/24/21at 07:22; Start 05/24/21 at 01:00; Stop 05/24/21 at 10:00; Status DC Piperacillin Sod/ Tazobactam Sod (Zosyn Per Pharmacy) 1 each PRN DAILY PRN MC SEE COMMENTS; Start 05/24/21 at 09:45 Polyethylene Glycol (miraLAX PACKET) 17 gm DAILY PO Last administered on 05/24/21at 12:02; Start 05/24/21 at 11:00 Fluticasone Propionate (Flonase) 2 spray DAILY NS ; Start 05/25/21 at 09:00 Cetirizine HCl (ZyrTEC) 10 mg DAILY PO Last administered on 05/24/21at 12:05; Start 05/24/21 at 11:00 Multivitamins (Thera M Plus) 1 tab DAILY PO Last administered on 05/24/21at 12:02; Start 05/24/21 at 11:00 Non-Formulary Medication (Oxycodone Hcl (Oxycodone Hcl Immed.release)) 1 tab TID PO ; Start 05/24/21 at 14:00; Status UNV Pantoprazole Sodium (Protonix) 40 mg DAILYAC PO Last administered on 05/24/21at 12:02; Start 05/24/21 at 11:30 Zolpidem Tartrate (Ambien) 5 mg QHS PO ; Start 05/24/21 at 21:00 Ondansetron HCl (Zofran) 4 mg PRN Q6HRS PRN IVP NAUSEA/VOMITING; Start 05/24/21 at 10:00 Calcium Carbonate/ Glycine (Tums) 500 mg PRN Q3HRS PRN PO UPSET STOMACH; Start 05/24/21 at 10:00 Zolpidem Tartrate (Ambien) 5 mg PRN QHS PRN PO INSOMNIA, MAY REPEAT IN 1HR; Start 05/24/21 at 10:00; Status UNV Info (Non-Icu Electrolyte Protocol) 1 ea PRN DAILY PRN MC SEE COMMENTS; Start 05/24/21 at 10:00 Oxycodone/ Acetaminophen (Percocet 5/325) 1 tab PRN Q4HRS PRN PO MILD PAIN, 1ST CHOICE; Start 05/24/21 at 10:00; Stop 05/24/21 at 10:25; Status DC Oxycodone/ Acetaminophen (Percocet 5/325) 2 tab PRN Q4HRS PRN PO MODERATE PAIN, SEVERE PAIN; Start 05/24/21 at 10:00; Stop 05/24/21 at 10:25; Status DC Acetaminophen (Tylenol) 650 mg PRN Q6HRS PRN PO Headaches, Temp > 101.5F; Start 05/24/21 at 10:00 Senna/Docusate Sodium (Senna Plus) 1 tab BID PO ; Start 05/24/21 at 21:00 Heparin Sodium (Porcine) (Heparin Sodium) 5,000 unit Q8HRS SQ ; Start 05/24/21 at 14:00 Piperacillin Sod/ Tazobactam Sod 3.375 gm/Sodium Chloride 50 ml @ 100 mls/hr Q6HRS IV Last administered on 05/24/21at 17:16; Start 05/24/21 at 12:00 Oxycodone HCl (Roxicodone) 5 mg PRN Q4HRS PRN PO MODERATE PAIN; Start 05/24/21 at 10:30 Oxycodone HCl (Roxicodone) 10 mg PRN Q4HRS PRN PO SEVERE PAIN Last administered on 05/24/21at 16:40; Start 05/24/21 at 10:45 Lactobacillus Rhamnosus (Culturelle) 1 cap BID PO ; Start 05/24/21 at 21:00 Active Scripts Active Reported Multivitamins (Multivitamin) 1 Each Tablet 1 Tab PO DAILY Miralax (Polyethylene Glycol 3350) 17 Gm Powd.pack 1 Packet PO DAILY Calcium (Calcium Carbonate) 600 Mg Tablet 600 Mg PO TID Flonase Allergy Relief (Fluticasone Propionate) 9.9 Ml [place].susp 2 Sprays NS DAILY Loratadine 10 Mg Tablet 1 Tab PO DAILY Ambien (Zolpidem Tartrate) 10 Mg Tablet 1 Tab PO QHS Oxycodone Hcl Immed.release (Oxycodone Hcl) 10 Mg Tablet 1 Tab PO TID Protonix Packet (Pantoprazole Sodium) 40 Mg Granpkt.dr 40 Mg PO DAILY ROS: Review of Systems Review of System Unless noted in HPI 14pt ros negative Physical Exam: Vital Signs: Vital Signs Date Time Temp Pulse Resp B/P (MAP) Pulse Ox O2 Delivery O2 Flow Rate FiO2 05/24/21 19:00 99.1 81 18 101/53 (69) 96 Room Air 99.1 Physcial Exam: GEN: No apparent distress. Alert and oriented HEENT: Normal cephalic, atraumatic, external auditory canals are patent EYES: Extraocular muscles are intact, pupil are equally round and reactive to light and accommodation MUSCULOSKELETAL: Well developed , well nourished, good range of motion ENDOCRINE: No thyromegaly was palpated LYMPHATICS: No cervical chain or axillary nodes were noted HEMATOPOIETIC: No bruising NECK: Supple, no JVD, no thyromegaly was noted LUNGS: Clear to auscultation in all lung barrett without rhonchi or wheezing HEART: RRR, S!, S2 present. Peripheral pulses intact, no obvious murmurs noted ABDOMEN: Soft, nontender. Positive bowel sounds, no organomegaly, normal bowel sounds EXTREMITIES: Without clubbing, cyanosis, or edema. Pedal pulses intact. Negative Homans sign NEUROLOGIC: Normal speech and tone. A&O x 3, moves all extremities, no obvious focal deficits PSYCHIATRIC: Normal affect, normal mood. Stable SKIN: No ulcerations or rashes, good skin turgor, no jaundice VASCULAR: Good capillary refill, neurovascular bundle appears to be intact Labs: Labs: Laboratory Tests Test 05/23/21 21:30 05/23/21 21:34 05/23/21 22:15 05/24/21 01:25 Urine Collection Type Unknown Urine Color Yellow Urine Clarity Clear Urine pH 6.0 (<5.0-8.0) Urine Specific [place] <=1.005 (1.000-1.030) Urine Protein Trace mg/dL (NEG-TRACE) Urine Glucose (UA) Negative mg/dL (NEG) Urine Ketones (Stick) Negative mg/dL (NEG) Urine Blood Trace (NEG) Urine Nitrite Positive (NEG) Urine Bilirubin Negative (NEG) Urine Urobilinogen Dipstick 0.2 mg/dL (0.2 mg/dL) Urine Leukocyte Esterase Small (NEG) Urine RBC Occ /HPF (0-2) Urine WBC >40 /HPF (0-4) Urine Squamous Epithelial Cells Mod /LPF Urine Bacteria Moderate /HPF (0-FEW) Urine Mucus Slight /LPF Bedside Urine HCG, Qualitative Hcg negative (Negative) White Blood Count 11.5 x10^3/uL (4.0-11.0) Red Blood Count 3.97 x10^6/uL (3.50-5.40) Hemoglobin 11.3 g/dL (12.0-15.5) Hematocrit 35.1 % (36.0-47.0) Mean Corpuscular Volume 88 fL (79-100) Mean Corpuscular Hemoglobin 29 pg (25-35) Mean Corpuscular Hemoglobin Concent 32 g/dL (31-37) Red Cell Distribution Width 14.1 % (11.5-14.5) Platelet Count 286 x10^3/uL (140-400) Neutrophils (%) (Auto) 65 % (31-73) Lymphocytes (%) (Auto) 23 % (24-48) Monocytes (%) (Auto) 10 % (0-9) Eosinophils (%) (Auto) 1 % (0-3) Basophils (%) (Auto) 1 % (0-3) Neutrophils # (Auto) 7.5 x10^3/uL (1.8-7.7) Lymphocytes # (Auto) 2.6 x10^3/uL (1.0-4.8) Monocytes # (Auto) 1.2 x10^3/uL (0.0-1.1) Eosinophils # (Auto) 0.1 x10^3/uL (0.0-0.7) Basophils # (Auto) 0.1 x10^3/uL (0.0-0.2) Prothrombin Time 14.0 SEC (11.7-14.0) Prothromb Time International Ratio 1.1 (0.8-1.1) Sodium Level 140 mmol/L (136-145) Potassium Level 4.0 mmol/L (3.5-5.1) Chloride Level 103 mmol/L (98-107) Carbon Dioxide Level 29 mmol/L (21-32) Anion Gap 8 (6-14) Blood Urea Nitrogen 10 mg/dL (7-20) Creatinine 0.9 mg/dL (0.6-1.0) Estimated GFR (Cockcroft-Gault) 69.0 BUN/Creatinine Ratio 11 (6-20) Glucose Level 94 mg/dL (70-99) Lactic Acid Level 1.1 mmol/L (0.4-2.0) Calcium Level 9.0 mg/dL (8.5-10.1) Total Bilirubin 0.7 mg/dL (0.2-1.0) Aspartate Amino Transf (AST/SGOT) 9 U/L (15-37) Alanine Aminotransferase (ALT/SGPT) 19 U/L (14-59) Alkaline Phosphatase 96 U/L (46-116) Total Protein 7.9 g/dL (6.4-8.2) Albumin 3.4 g/dL (3.4-5.0) Albumin/Globulin Ratio 0.8 (1.0-1.7) Lipase 103 U/L (73-393) Salicylates Level 2.5 mg/dL (2.8-20.0) Salicylate Last Dose Date Salicylate Last Dose Time Acetaminophen Level 11.7 mcg/ml (10-30) Acetaminophen Last Dose Date Acetaminophen Last Dose Time Coronavirus (COVID-19)(PCR) Not detected (NOT DETECTD) Influenza Type A Antigen Negative (NEGATIVE) Influenza Type B Antigen Negative (NEGATIVE) SARS-CoV-2 Antigen (Rapid) Negative (NEGATIVE) Laboratory Tests Test 05/23/21 21:30 05/23/21 21:34 05/23/21 22:15 05/24/21 01:25 Urine Collection Type Unknown Urine Color Yellow Urine Clarity Clear Urine pH 6.0 (<5.0-8.0) Urine Specific [place] <=1.005 (1.000-1.030) Urine Protein Trace mg/dL (NEG-TRACE) Urine Glucose (UA) Negative mg/dL (NEG) Urine Ketones (Stick) Negative mg/dL (NEG) Urine Blood Trace (NEG) Urine Nitrite Positive (NEG) Urine Bilirubin Negative (NEG) Urine Urobilinogen Dipstick 0.2 mg/dL (0.2 mg/dL) Urine Leukocyte Esterase Small (NEG) Urine RBC Occ /HPF (0-2) Urine WBC >40 /HPF (0-4) Urine Squamous Epithelial Cells Mod /LPF Urine Bacteria Moderate /HPF (0-FEW) Urine Mucus Slight /LPF Bedside Urine HCG, Qualitative Hcg negative (Negative) White Blood Count 11.5 x10^3/uL (4.0-11.0) Red Blood Count 3.97 x10^6/uL (3.50-5.40) Hemoglobin 11.3 g/dL (12.0-15.5) Hematocrit 35.1 % (36.0-47.0) Mean Corpuscular Volume 88 fL (79-100) Mean Corpuscular Hemoglobin 29 pg (25-35) Mean Corpuscular Hemoglobin Concent 32 g/dL (31-37) Red Cell Distribution Width 14.1 % (11.5-14.5) Platelet Count 286 x10^3/uL (140-400) Neutrophils (%) (Auto) 65 % (31-73) Lymphocytes (%) (Auto) 23 % (24-48) Monocytes (%) (Auto) 10 % (0-9) Eosinophils (%) (Auto) 1 % (0-3) Basophils (%) (Auto) 1 % (0-3) Neutrophils # (Auto) 7.5 x10^3/uL (1.8-7.7) Lymphocytes # (Auto) 2.6 x10^3/uL (1.0-4.8) Monocytes # (Auto) 1.2 x10^3/uL (0.0-1.1) Eosinophils # (Auto) 0.1 x10^3/uL (0.0-0.7) Basophils # (Auto) 0.1 x10^3/uL (0.0-0.2) Prothrombin Time 14.0 SEC (11.7-14.0) Prothromb Time International Ratio 1.1 (0.8-1.1) Sodium Level 140 mmol/L (136-145) Potassium Level 4.0 mmol/L (3.5-5.1) Chloride Level 103 mmol/L (98-107) Carbon Dioxide Level 29 mmol/L (21-32) Anion Gap 8 (6-14) Blood Urea Nitrogen 10 mg/dL (7-20) Creatinine 0.9 mg/dL (0.6-1.0) Estimated GFR (Cockcroft-Gault) 69.0 BUN/Creatinine Ratio 11 (6-20) Glucose Level 94 mg/dL (70-99) Lactic Acid Level 1.1 mmol/L (0.4-2.0) Calcium Level 9.0 mg/dL (8.5-10.1) Total Bilirubin 0.7 mg/dL (0.2-1.0) Aspartate Amino Transf (AST/SGOT) 9 U/L (15-37) Alanine Aminotransferase (ALT/SGPT) 19 U/L (14-59) Alkaline Phosphatase 96 U/L (46-116) Total Protein 7.9 g/dL (6.4-8.2) Albumin 3.4 g/dL (3.4-5.0) Albumin/Globulin Ratio 0.8 (1.0-1.7) Lipase 103 U/L (73-393) Salicylates Level 2.5 mg/dL (2.8-20.0) Salicylate Last Dose Date Salicylate Last Dose Time Acetaminophen Level 11.7 mcg/ml (10-30) Acetaminophen Last Dose Date Acetaminophen Last Dose Time Coronavirus (COVID-19)(PCR) Not detected (NOT DETECTD) Influenza Type A Antigen Negative (NEGATIVE) Influenza Type B Antigen Negative (NEGATIVE) SARS-CoV-2 Antigen (Rapid) Negative (NEGATIVE) Assessment/Plan Assessment/Plan Bilateral pyelonephritis -presenting flank pain, dysuria -received Rocephin in ED -start Zosyn -follow up culture results, narrow abx as indicated -Urology consulted in ED -diet as tolerated -as needed pain control Justifications for Admission Other Justification FLORINA RANGEL MD May 24, 2021 21:02
[2021-05-24] MEDS: LACTOBACILLUS RHAMNOSUS GG 1 CAPSULE. PO SCH (21:47)
[2021-05-24] MEDS: SENNOSIDES/DOCUSATE 8.6/50MG TABLET. PO SCH (21:47)
[2021-05-24 23:00] VITALS: BP 105/44
[2021-05-25] MEDS: PIPERACILLIN/TAZOBACTAM 3.375 GM in IV NORMAL SALINE 50ML 50 ML IV SCH ×2 (00:18→06:28)
[2021-05-25] MEDS: oxyCODONE IR 5 MG TABLET PO PRN ×3 (01:59→12:11)
[2021-05-25 03:00] VITALS: BP 119/39
[2021-05-25] MEDS: HEPARIN for SUB-Q USE 5,000 UNIT/ML VIAL. SQ SCH (06:00)
[2021-05-25] MEDS: PANTOPRAZOLE 40 MG TABLET.DR. PO SCH (06:33)
[2021-05-25 06:56] LABS: BASO % 1 % (0-3); EOS # 0.1 x10^3/uL (0.0-0.7); EOS % 1 % (0-3); HEMATOCRIT 30.2 % (36.0-47.0); HEMOGLOBIN 9.6 g/dL (12.0-15.5); LYMPH # 2.8 x10^3/uL (1.0-4.8); LYMPH % 33 % (24-48); MEAN CORPUSCULAR HEMOGLOBIN 29 pg (25-35); MEAN CORPUSCULAR HGB CONC 32 g/dL (31-37); MEAN CORPUSCULAR VOLUME 90 fL (79-100); MONO # 0.7 x10^3/uL (0.0-1.1); MONO % 9 % (0-9); NEUT # 4.7 x10^3/uL (1.8-7.7); NEUT % 56 % (31-73); PLATELET COUNT 223 x10^3/uL (140-400); RED BLOOD COUNT 3.35 x10^6/uL (3.50-5.40); RED CELL DISTRIBUTION WIDTH 14.4 % (11.5-14.5); WHITE BLOOD COUNT 8.4 x10^3/uL (4.0-11.0)
[2021-05-25 07:15] VITALS: BP 97/50
[2021-05-25 07:19] LABS: ALBUMIN 2.8 g/dL (3.4-5.0); ALBUMIN/GLOBULIN RATIO 0.7 (1.0-1.7); CALCIUM 8.7 mg/dL (8.5-10.1); GFR 61.1; POTASSIUM 4.2 mmol/L (3.5-5.1); TOTAL BILIRUBIN 0.9 mg/dL (0.2-1.0); TOTAL PROTEIN 6.9 g/dL (6.4-8.2)
--- NOTE | 2021-05-25 07:38 | PDOC ---
PROGRESS NOTE DATE OF SERVICE: DATE: 05/25/21 TIME: 07:35 CHIEF COMPLAINT: flank pain SUBJECTIVE: ROS: ROS: RESPIRATORY: Shortness of breath denies. Cough denies. UROLOGY: Denies blood in urine. Denies difficulty urinating HPI: Patient resting in bed. States still having flank pain, but has improved. Problems: Problems Medical Problems: (1) Nephrolithiasis Status: Acute (2) Pyelonephritis Status: Acute OBJECTIVE: Vital Signs: Vital Signs Date Time Temp Pulse Resp B/P (MAP) Pulse Ox O2 Delivery O2 Flow Rate FiO2 05/25/21 03:00 99.3 83 18 119/39 (65) 95 Room Air 99.3 05/25/21 02:29 20 Room Air 05/25/21 01:59 20 Room Air 05/24/21 23:00 99.4 75 18 105/44 (64) 94 Room Air 99.4 05/24/21 22:19 20 Room Air 05/24/21 21:49 20 Room Air 05/24/21 20:00 Room Air 05/24/21 19:00 99.1 81 18 101/53 (69) 96 Room Air 99.1 05/24/21 17:15 16 92 Room Air 05/24/21 17:15 16 92 Room Air 05/24/21 16:41 16 92 Room Air 05/24/21 16:40 16 92 Room Air 05/24/21 15:10 16 92 Room Air 05/24/21 15:08 99.4 79 18 91/59 (70) 99 99.4 05/24/21 14:07 18 92 Room Air 05/24/21 14:07 18 92 Room Air 05/24/21 13:25 16 96 Room Air 05/24/21 11:14 16 96 Room Air 05/24/21 10:51 97.6 73 18 92/53 (66) 96 97.6 05/24/21 10:41 16 96 Room Air 05/24/21 10:37 16 96 Room Air 05/24/21 10:07 16 96 Room Air 05/24/21 08:18 Room Air 05/24/21 08:02 16 96 Room Air I & O Intake and Output 05/25/21 07:00 Intake Total 600 ml Output Total 1950 ml Balance -1350 ml Intake Oral 600 ml Output Urine Total 1950 ml PHYSICAL EXAM: Physical Exam: General: Pleasant, no acute distress, well groomed Eyes: conjunctiva anicteric, eyes full range of motion ENT: moist oral mucosa, normal dentition Neck: Trachea midline, no masses Respiratory: unlabored breathing, not using accessory muscles, Abdomen: nontender, nondistended, no hepatosplenomegaly, no masses Skin: no rashes or skin lesions on visualized skin Psych: normal mood, affect. Alert and oriented x 3. LABS: Laboratory Tests Test 05/23/21 21:30 05/23/21 21:34 05/23/21 22:15 05/24/21 01:25 Urine Collection Type Unknown Urine Color Yellow Urine Clarity Clear Urine pH 6.0 (<5.0-8.0) Urine Specific [place] <=1.005 (1.000-1.030) Urine Protein Trace mg/dL (NEG-TRACE) Urine Glucose (UA) Negative mg/dL (NEG) Urine Ketones (Stick) Negative mg/dL (NEG) Urine Blood Trace (NEG) Urine Nitrite Positive (NEG) Urine Bilirubin Negative (NEG) Urine Urobilinogen Dipstick 0.2 mg/dL (0.2 mg/dL) Urine Leukocyte Esterase Small (NEG) Urine RBC Occ /HPF (0-2) Urine WBC >40 /HPF (0-4) Urine Squamous Epithelial Cells Mod /LPF Urine Bacteria Moderate /HPF (0-FEW) Urine Mucus Slight /LPF Bedside Urine HCG, Qualitative Hcg negative (Negative) White Blood Count 11.5 x10^3/uL (4.0-11.0) Red Blood Count 3.97 x10^6/uL (3.50-5.40) Hemoglobin 11.3 g/dL (12.0-15.5) Hematocrit 35.1 % (36.0-47.0) Mean Corpuscular Volume 88 fL (79-100) Mean Corpuscular Hemoglobin 29 pg (25-35) Mean Corpuscular Hemoglobin Concent 32 g/dL (31-37) Red Cell Distribution Width 14.1 % (11.5-14.5) Platelet Count 286 x10^3/uL (140-400) Neutrophils (%) (Auto) 65 % (31-73) Lymphocytes (%) (Auto) 23 % (24-48) Monocytes (%) (Auto) 10 % (0-9) Eosinophils (%) (Auto) 1 % (0-3) Basophils (%) (Auto) 1 % (0-3) Neutrophils # (Auto) 7.5 x10^3/uL (1.8-7.7) Lymphocytes # (Auto) 2.6 x10^3/uL (1.0-4.8) Monocytes # (Auto) 1.2 x10^3/uL (0.0-1.1) Eosinophils # (Auto) 0.1 x10^3/uL (0.0-0.7) Basophils # (Auto) 0.1 x10^3/uL (0.0-0.2) Prothrombin Time 14.0 SEC (11.7-14.0) Prothromb Time International Ratio 1.1 (0.8-1.1) Sodium Level 140 mmol/L (136-145) Potassium Level 4.0 mmol/L (3.5-5.1) Chloride Level 103 mmol/L (98-107) Carbon Dioxide Level 29 mmol/L (21-32) Anion Gap 8 (6-14) Blood Urea Nitrogen 10 mg/dL (7-20) Creatinine 0.9 mg/dL (0.6-1.0) Estimated GFR (Cockcroft-Gault) 69.0 BUN/Creatinine Ratio 11 (6-20) Glucose Level 94 mg/dL (70-99) Lactic Acid Level 1.1 mmol/L (0.4-2.0) Calcium Level 9.0 mg/dL (8.5-10.1) Total Bilirubin 0.7 mg/dL (0.2-1.0) Aspartate Amino Transf (AST/SGOT) 9 U/L (15-37) Alanine Aminotransferase (ALT/SGPT) 19 U/L (14-59) Alkaline Phosphatase 96 U/L (46-116) Total Protein 7.9 g/dL (6.4-8.2) Albumin 3.4 g/dL (3.4-5.0) Albumin/Globulin Ratio 0.8 (1.0-1.7) Lipase 103 U/L (73-393) Salicylates Level 2.5 mg/dL (2.8-20.0) Salicylate Last Dose Date Salicylate Last Dose Time Acetaminophen Level 11.7 mcg/ml (10-30) Acetaminophen Last Dose Date Acetaminophen Last Dose Time Coronavirus (COVID-19)(PCR) Not detected (NOT DETECTD) Influenza Type A Antigen Negative (NEGATIVE) Influenza Type B Antigen Negative (NEGATIVE) SARS-CoV-2 Antigen (Rapid) Negative (NEGATIVE) Test 05/25/21 06:15 White Blood Count 8.4 x10^3/uL (4.0-11.0) Red Blood Count 3.35 x10^6/uL (3.50-5.40) Hemoglobin 9.6 g/dL (12.0-15.5) Hematocrit 30.2 % (36.0-47.0) Mean Corpuscular Volume 90 fL (79-100) Mean Corpuscular Hemoglobin 29 pg (25-35) Mean Corpuscular Hemoglobin Concent 32 g/dL (31-37) Red Cell Distribution Width 14.4 % (11.5-14.5) Platelet Count 223 x10^3/uL (140-400) Neutrophils (%) (Auto) 56 % (31-73) Lymphocytes (%) (Auto) 33 % (24-48) Monocytes (%) (Auto) 9 % (0-9) Eosinophils (%) (Auto) 1 % (0-3) Basophils (%) (Auto) 1 % (0-3) Neutrophils # (Auto) 4.7 x10^3/uL (1.8-7.7) Lymphocytes # (Auto) 2.8 x10^3/uL (1.0-4.8) Monocytes # (Auto) 0.7 x10^3/uL (0.0-1.1) Eosinophils # (Auto) 0.1 x10^3/uL (0.0-0.7) Basophils # (Auto) 0.0 x10^3/uL (0.0-0.2) Sodium Level 138 mmol/L (136-145) Potassium Level 4.2 mmol/L (3.5-5.1) Chloride Level 102 mmol/L (98-107) Carbon Dioxide Level 28 mmol/L (21-32) Anion Gap 8 (6-14) Blood Urea Nitrogen 8 mg/dL (7-20) Creatinine 1.0 mg/dL (0.6-1.0) Estimated GFR (Cockcroft-Gault) 61.1 BUN/Creatinine Ratio 8 (6-20) Glucose Level 119 mg/dL (70-99) Calcium Level 8.7 mg/dL (8.5-10.1) Total Bilirubin 0.9 mg/dL (0.2-1.0) Aspartate Amino Transf (AST/SGOT) 102 U/L (15-37) Alanine Aminotransferase (ALT/SGPT) 135 U/L (14-59) Alkaline Phosphatase 169 U/L (46-116) Total Protein 6.9 g/dL (6.4-8.2) Albumin 2.8 g/dL (3.4-5.0) Albumin/Globulin Ratio 0.7 (1.0-1.7) Microbiology 05/24/21 Blood Culture - Preliminary, Resulted NO GROWTH AFTER 1 DAY MEDICATIONS: Current Medications Medications (Trade) Dose Ordered Sig/Misael Start Time Stop Time Status Last Admin Dose Admin Acetaminophen (Tylenol) 650 mg PRN Q6HRS PRN 05/24/21 10:00 Calcium Carbonate/ Glycine (Tums) 500 mg PRN Q3HRS PRN 05/24/21 10:00 Ceftriaxone Sodium (Rocephin) 1 gm 1X ONCE 05/24/21 00:30 05/24/21 00:31 DC 05/24/21 00:55 1 GM Cetirizine HCl (ZyrTEC) 10 mg DAILY 05/24/21 11:00 05/24/21 12:05 10 MG Fentanyl Citrate (Fentanyl 2ml Vial) 75 mcg 1X ONCE 05/23/21 22:30 05/23/21 22:31 DC 05/23/21 22:27 75 MCG Fluticasone Propionate (Flonase) 2 spray DAILY 05/25/21 09:00 Heparin Sodium (Porcine) (Heparin Sodium) 5,000 unit Q8HRS 05/24/21 14:00 Info (CONTRAST GIVEN -- Rx MONITORING) 1 each PRN DAILY PRN 05/23/21 23:45 05/25/21 23:44 Info (Non-Icu Electrolyte Protocol) 1 ea PRN DAILY PRN 05/24/21 10:00 Iohexol (Omnipaque 300 Mg/ml) 75 ml 1X ONCE 05/24/21 00:00 05/24/21 00:01 DC 05/23/21 23:52 75 ML Lactobacillus Rhamnosus (Culturelle) 1 cap BID 05/24/21 21:00 05/24/21 21:47 1 CAP Morphine Sulfate (Morphine Sulfate) 4 mg PRN Q2HR PRN 05/24/21 01:00 05/25/21 00:59 DC 05/24/21 16:41 4 MG Multivitamins (Thera M Plus) 1 tab DAILY 05/24/21 11:00 05/24/21 12:02 1 TAB Non-Formulary Medication (Oxycodone Hcl (Oxycodone Hcl Immed.release)) 1 tab TID 05/24/21 14:00 UNV Ondansetron HCl (Zofran) 4 mg PRN Q6HRS PRN 05/24/21 10:00 Oxycodone HCl (Roxicodone) 10 mg PRN Q4HRS PRN 05/24/21 10:45 05/25/21 01:59 10 MG Oxycodone/ Acetaminophen (Percocet 5/325) 2 tab PRN Q4HRS PRN 05/24/21 10:00 05/24/21 10:25 DC Pantoprazole Sodium (Protonix) 40 mg DAILYAC 05/24/21 11:30 05/25/21 06:33 40 MG Piperacillin Sod/ Tazobactam Sod (Zosyn Per Pharmacy) 1 each PRN DAILY PRN 05/24/21 09:45 Piperacillin Sod/ Tazobactam Sod 3.375 gm/Sodium Chloride 50 ml @ 100 mls/hr Q6HRS 05/24/21 12:00 05/25/21 06:28 100 MLS/HR Polyethylene Glycol (miraLAX PACKET) 17 gm DAILY 05/24/21 11:00 05/24/21 12:02 17 GM Senna/Docusate Sodium (Senna Plus) 1 tab BID 05/24/21 21:00 05/24/21 21:47 1 TAB Sodium Chloride 1,000 ml @ 75 mls/hr [id number] 05/24/21 01:00 05/25/21 00:59 DC 05/24/21 14:20 75 MLS/HR Zolpidem Tartrate (Ambien) 5 mg PRN QHS PRN 05/24/21 10:00 UNV ASSESSMENT & PLAN ----Bilateral pyelonephritis Rocephin given in ER. Transitioned to Zosyn. UA positive. Discussed with nursing that culture needs to be done off of original specimen. Nursing looking into that. Recommend 14 day course of culture specific antibiotics. WBC 11 on admission. Febrile. WBC 8 this AM. Creat stable at 0.9. PVR done: 49. No concern with retention. No intervention needed at this time. ---1mm right nephrolithiasis Significant history of stones. Nonobstructing stone in kidney. CT with no hydro. Discussed with patient need for followup to evaluate why she is making so many stones. Patient does not have insurance. States that she most likely will not follow up. Urology will sign off at this time. Please call with any questions. Problem List: Problems Medical Problems: (1) Nephrolithiasis Status: Acute (2) Pyelonephritis Status: Acute SUMAN MEI APRN May 25, 2021 07:38
[2021-05-25] MEDS: MULTIVITAMIN with MINERAL TABLET. PO SCH (08:03)
[2021-05-25] MEDS: POLYETHYLENE GLYCOL 3350 17 GM PACKET. PO SCH (08:03)
[2021-05-25] MEDS: LACTOBACILLUS RHAMNOSUS GG 1 CAPSULE. PO SCH (08:04)
[2021-05-25] MEDS ORDERED: ONDANSETRON ODT 4 MG TAB.RAPDIS. PO PRN (08:30)
[2021-05-25] MEDS: SENNOSIDES/DOCUSATE 8.6/50MG TABLET. PO SCH (09:00)
[2021-05-25] MEDS ORDERED: FLUTICASONE 50MCG/NASAL SPRAY 16GM BOTTLE. NS SCH (09:00)
[2021-05-25] MEDS: CETIRIZINE HCL 10 MG TABLET. PO SCH (09:00)
[2021-05-25 11:00] VITALS: BP 91/45
[2021-05-25] MEDS ORDERED: CIPROFLOXACIN HCL 250 MG TABLET. PO ONE (12:00)
[2021-05-25] MEDS ORDERED: OXYC5TAB4 PO (12:49)
[2021-05-25] MEDS ORDERED: CIPR250T30 PO (12:49)
[2021-05-25 14:19] VITALS: BP 100/40
--- NOTE | 2021-05-25 18:22 | PDOC3 ---
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 Patient states she has a history of sepsis secondary to pyelonephritis about 7-1/2 years ago, was hospitalized at in the ICU at that time. Patient has been taking Tylenol for the past 2 days. Patient states she initially had some loose stools but denies any diarrhea currently. Denies fevers, systemic symptoms. 05/25 Evaluated examined at bedside. Reporting quite a bit of improvement. Inquiring about discharge today. We will switch antibiotics to Cipro and she does okay can discharge home. 14-day course. If cultures show resistance will contact patient myself and change antibiotics. greater than 30-minute spent on discharge Disposition: Disposition/Orders: D/C to Home Activity: Activity: Resume previous activity Diet: Diet: Regular Medications: Home Meds Active Scripts Oxycodone Hcl (OXYCODONE HCL IMMED.RELEASE ) 5 Mg Tablet, 5 MG PO PRN Q4HRS PRN for MODERATE PAIN for 5 Days, #15 TAB Prov:FLORINA RANGEL MD 05/25/21 Ciprofloxacin Hcl (CIPRO) 250 Mg Tablet, 500 MG PO BID for pyelo for 14 Days, #56 TAB Prov:FLORINA RANGEL MD 05/25/21 Reported Medications Multivitamin (MULTIVITAMINS) 1 Each Tablet, 1 TAB PO DAILY, #90 TAB 3 Refills 08/25/17 Polyethylene Glycol 3350 (MIRALAX) 17 Gm Powd.pack, 1 PACKET PO DAILY, #30 PACKET 3 Refills 08/25/17 Calcium Carbonate (CALCIUM) 600 Mg Tablet, 600 MG PO TID, TAB 08/25/17 Fluticasone Propionate (Flonase Allergy Relief) 9.9 Ml [place].susp, 2 SPRAYS NS DAILY, BOTTLE 08/25/17 Loratadine (LORATADINE) 10 Mg Tablet, 1 TAB PO DAILY, #30 TAB 5 Refills 08/25/17 Zolpidem Tartrate (AMBIEN) 10 Mg Tablet, 1 TAB PO QHS, #30 TAB 5 Refills 08/25/17 Pantoprazole Sodium (PROTONIX PACKET) 40 Mg Granpkt.dr, 40 MG PO DAILY, TAB 08/25/17 Discontinued Reported Medications Oxycodone Hcl (OXYCODONE HCL IMMED.RELEASE) 10 Mg Tablet, 1 TAB PO TID, #90 TAB 08/25/17 Topiramate (TOPIRAMATE) 50 Mg Tablet, 1 TAB PO BID, #60 TAB 1 Refill 08/25/17 Sertraline Hcl (ZOLOFT) 100 Mg Tablet, 200 MG PO DAILY for ANTI-DEPRESSANT, TAB 0 Refills 08/25/17 Lorazepam (LORAZEPAM) 1 Mg Tablet, 1 TAB PO TID, #90 TAB 08/25/17 Scheduled Calcium Carbonate (Calcium), 600 MG PO TID, (Reported) Ciprofloxacin Hcl (Cipro), 500 MG PO BID Fluticasone Propionate (Flonase Allergy Relief), 2 SPRAYS NS DAILY, (Reported) Loratadine (Loratadine), 1 TAB PO DAILY, (Reported) Multivitamin (Multivitamins), 1 TAB PO DAILY, (Reported) Pantoprazole Sodium (Protonix Packet), 40 MG PO DAILY, (Reported) Polyethylene Glycol 3350 (Miralax), 1 PACKET PO DAILY, (Reported) Zolpidem Tartrate (Ambien), 1 TAB PO QHS, (Reported) Scheduled PRN Oxycodone Hcl (Oxycodone Hcl Immed.release ), 5 MG PO PRN Q4HRS PRN for MODERATE PAIN Discontinued Medications Lorazepam (Lorazepam), 1 TAB PO TID, (Reported) Oxycodone Hcl (Oxycodone Hcl Immed.release), 1 TAB PO TID, (Reported) Sertraline Hcl (Zoloft), 200 MG PO DAILY, (Reported) Topiramate (Topiramate), 1 TAB PO BID, (Reported) Justicifation of Admission Dx: Justifications for Admission: Justification of Admission Dx: Yes (pyelonephritis) FLORINA RANGEL MD May 25, 2021 18:22
[2021-05-25] MEDS ORDERED: CIPROFLOXACIN HCL 250 MG TABLET. PO SCH (21:00)
== END 2021-05-25 15:05 | disposition home or self-care (01) | DRG 690 ==
LOC: ER 20:47 → 4 NORTH 05-24 00:30
PROVIDERS: ADMIT Internal Medicine; ATTEND Internal Medicine
DX: N12 Tubulo-interstitial nephritis, not specified as acute or chronic (principal); N20.0 Calculus of kidney; Z59.7 Insufficient social insurance and welfare support; Z82.49 Family history of ischemic heart disease and other diseases of the circulatory system; Z87.891 Personal history of nicotine dependence; Z90.710 Acquired absence of both cervix and uterus; Z98.84 Bariatric surgery status
CPT/HCPCS: 36415; 74177; 80053; 80329; 81001; 81025; 83605; 83690; 85025; 85610; 87040; 87077; 87086; 87186; 87428; 96374; 96375; J0696; J2270; J2405; J2543; J3010; J7030; Q9967; U0003; 99285-25; G0378; G0480